=== PATIENT | female | born 1960 ===

== ENCOUNTER → 2020-05-25 15:00 | Outpatient (CLI) | payer OTHER | END | disposition home or self-care (01) | LOC: PPH VACUNA 15:00 | PROVIDERS: ATTEND Emergency Medicine Pediatric Emergency Medicine | DX: Z23 Encounter for immunization (principal) ==

== ENCOUNTER 2020-06-15 13:13 | Outpatient (CLI) | payer OTHER | END 2020-06-15 13:14 | disposition home or self-care (01) | LOC: PPH VACUNA 13:13 | PROVIDERS: ATTEND Emergency Medicine Pediatric Emergency Medicine | DX: Z23 Encounter for immunization (principal) ==